=== PATIENT | female | born 1950 | race Caucasian/White ===

== ENCOUNTER → 2017-01-13 | Outpatient (CLI) | payer MEDICARE ==
--- NOTE | 2017-01-13 11:04 | WWHP ---
[facility] - HISTORY AND PHYSICAL DATE OF SERVICE: 01/13/2017 CHIEF COMPLAINT: The patient is here for her routine gynecologic exam and mammogram. HPI: This is a 66-year-old G3, P3 with an LMP of approximately 2005. She is here to establish with this office and is without gynecologic complaints. She denies any postmenopausal bleeding. The patient states it has been about 5 years since her last pelvic exam. PAST MEDICAL HISTORY: Chronic hypertension, type 2 diabetes, and depression. She denies any suicidal thoughts and is not on any medication for this. She also has hip problems. MEDICATIONS: 1. Aspirin 81 mg daily. 2. Enalapril 10 mg daily. 3. Hydrochlorothiazide 12.5 mg daily. 4. Xanax 0.5 mg p.r.n. 5. She was prescribed medication for her diabetes, but has not been taking it. ALLERGIES: PENICILLIN, which caused hives and CODEINE and HYDROCODONE caused pruritus. PAST SURGICAL HISTORY: Tubal ligation in the past, colonoscopy 2012. PAST OB HISTORY: Three vaginal deliveries. PAST PHYSICALLY IMPAIRED TEACHER HISTORY: She was treated for a sexually transmitted infection in 1968 but does not know exactly what it was. She has no other history of STDs. She has no history of HSV. SOCIAL HISTORY: She quit smoking in 2013 and denies alcohol use. She admits to using marijuana and denies any other drug use. She is a and is not seeing anybody at this time and is not sexually active. FAMILY HISTORY: Sister has type 1 diabetes. Father had lung cancer. REVIEW OF SYSTEMS: Weight has been stable. She denies respiratory, cardiac or GI problems. She denies maltreatment. She states she did fall in the shower once, but had no major injuries. : She denies any significant problems with urinary leakage. PHYSICAL EXAM: Blood pressure 158/66, height 5 feet 5 inches, weight 167 pounds, temperature 96.1, pulse 77. This is a well-developed, well-nourished, white female, who is alert and oriented x3, in no acute distress. HEENT is within normal limits. NECK: Supple without mass or thyromegaly. CHEST AND LUNGS: Clear to auscultation. HEART: Regular rate and rhythm. Breasts are without mass or discharge. Axillary exam is negative for adenopathy. Back negative for CVA tenderness. ABDOMEN: Soft, nontender, without palpable masses. PELVIC EXAM: External genitalia reveals qawo-ap-nfegwnjy atrophy without lesions. Cervix and vagina reveal mild atrophy without lesions. There is no significant prolapse. The uterus is mid position, nongravid size and nontender. There are no palpable adnexal masses or tenderness. Rectovaginal exam is negative for mass or tenderness and is negative for occult blood. EXTREMITIES: Nontender. IMPRESSION: A 66-year-old menopausal female with normal gynecologic exam. PLAN: 1. Pap smear was performed. 2. Self breast examination was discussed. 3. Mammogram will be done today. 4. Bone density testing will be done today and this will be her first. Osteoporosis prevention was also discussed. 5. We have discussed her elevated blood pressure today. I have recommend that she check her blood pressure herself on a regular basis and follow up with Dr. Goodson for blood pressure elevation. 6. I have recommended that she consider flu shots and she states she never gets them because of concerns with the flu shot. 7. I have recommended that she talk to Dr. Goodson regarding her diabetes treatment since she has not been taking her medication as prescribed. 8. She will return in 1 year. MMODL / IJN: [id number] /
--- NOTE | 2017-01-13 11:07 | BD ---
EXAMINATION TYPE: MG DEXA axial skeleton. DATE OF EXAM: 01/13/2017 COMPARISON: NONE CLINICAL HISTORY: post menopausal Height: 5'4 06/07 Weight: 165 FRAX RISK QUESTIONS: Alcohol (3 or more units per day): no Family History (Parent hip fracture): no Glucocorticoids (More than 3mos): no (Ex: prednisone, prednisolone, methylprednisolone, dexamethasone, and hydrocortisone). History of Fracture in Adulthood: no Secondary Osteoporosis: 1. Type 1 Diabetes: yes 2. Hyperthyroidism: no 3. Menopause before 45: no 4. Malnutrition: no 5. Chronic liver disease: no Rheumatoid Arthritis: no Current Tobacco Use: no RISK FACTORS HISTORY OF: Active: Diet low in dairy products/other sources of calcium: Postmenopausal woman: MEDICATIONS: Additional Medications: high blood pressure , Additional History: left hip replacement end february EXAM MEASUREMENTS: Bone mineral densitometry was performed using the Verold System. Bone mineral density as measured about the Lumbar spine is: ----- L1-L4(G/cm2): 1.436 T Score Values are as follows: ----- L2: 1.1 ----- L3:2.5 ----- L4: 3.4 ----- L1-L4: 2.1 Bone mineral density about the R hip (g/cm2): 0.826 Bone mineral density about the L hip (g/cm2): 0.953 T Score values are as follows: -----R Neck: -1.0 -----L Neck: -0.6 -----R Total: -0.2 -----L Total: -0.1 IMPRESSION: Normal (Values between +1 and -1 indicate normal bone mass). Consider repeating this study in 5 year s or sooner if there is some new clinical indication. NOTE: T-SCORE=SD OF THE YOUNG ADULT MEAN.
--- NOTE | 2017-01-13 11:41 | MM ---
Reason for exam: screening (asymptomatic). Last mammogram was performed 1 year and 3 months ago. History: Patient is postmenopausal and had first child at age 31. Physical Findings: A clinical breast exam by your physician is recommended on an annual basis and results should be correlated with mammographic findings. MG Screening Mammo w CAD Bilateral CC and MLO view(s) were taken. Prior study comparison: October 22, 2015, bilateral MG screening mammo w CAD. September 26, 2013, bilateral MG screening mammo w CAD. There are scattered fibroglandular densities. Finding: There are typically benign round calcifications in the left breast. There is no discrete abnormality. ASSESSMENT: Benign, BI-RAD 2 RECOMMENDATION: Routine screening mammogram of both breasts in 1 year.
== END ==
LOC: WWCWWP 09:09
PROVIDERS: ATTEND Obstetrics & Gynecology
DX: Z12.31 Encounter for screening mammogram for malignant neoplasm of breast (principal); Z78.0 Asymptomatic menopausal state
CPT/HCPCS: 77080; G0202

== ENCOUNTER → 2017-09-01 | Outpatient (CLI) | payer MEDICARE ==
--- NOTE | 2017-09-01 14:20 | XR ---
EXAMINATION TYPE: XR chest 2V DATE OF EXAM: 09/01/2017 COMPARISON: NONE HISTORY: Preop hip surgery TECHNIQUE: Frontal and lateral views of the chest are obtained. FINDINGS: There is no focal air space opacity, pleural effusion, or pneumothorax seen. The cardiac silhouette size is within normal limits. The osseous structures are intact. Degenerative disc forbes es in the visualized spine. IMPRESSION: No acute cardiopulmonary process.
== END | disposition home or self-care (01) ==
LOC: LABPAT 11:29
PROVIDERS: ATTEND Orthopaedic Surgery
DX: Z01.818 Encounter for other preprocedural examination (principal); Z01.812 Encounter for preprocedural laboratory examination; M16.12 Unilateral primary osteoarthritis, left hip
CPT/HCPCS: 71046; 87070

== ENCOUNTER → 2017-09-04 | Outpatient (CLI) | payer MEDICARE ==
[2017-09-04 11:21] LABS: Basophils # (A) 0.1 k/uL (0-0.2); Basophils % (A) 1 %; Eosinophils # (A) 0.3 k/uL (0-0.7); Eosinophils % (A) 3 %; HCT 44.4 % (34.0-46.0); HGB 15.3 gm/dL (11.4-16.0); Lymphocytes # (A) 3.1 k/uL (1.0-4.8); Lymphocytes % (A) 34 %; MCH 31.1 pg (25.0-35.0); MCHC 34.4 g/dL (31.0-37.0); MCV 90.5 fL (80.0-100.0); Mean Platelet Volume 7.5; Monocytes # (A) 0.7 k/uL (0-1.0); Monocytes % (A) 7 %; Neutrophils # (A) 4.7 k/uL (1.3-7.7); Neutrophils % (A) 52 %; Platelet Count 336 k/uL (150-450); RDW 12.8 % (11.5-15.5)
[2017-09-04 11:40] LABS: Partial Thromboplastin Time 24.6 sec (22.0-30.0); Prothrombin Time 9.6 sec (9.0-12.0)
[2017-09-04 11:52] LABS: Potassium 4.3 mmol/L (3.5-5.1)
== END | disposition home or self-care (01) ==
LOC: LABPAT 10:55
PROVIDERS: ATTEND Orthopaedic Surgery
DX: Z01.812 Encounter for preprocedural laboratory examination (principal); M16.12 Unilateral primary osteoarthritis, left hip; Z79.01 Long term (current) use of anticoagulants
CPT/HCPCS: 36415; 80051; 85025; 85610; 85730

== ENCOUNTER 2017-09-08 06:29 | Inpatient (IN) | payer MEDICARE ==
[2017-08-26 12:15] VITALS: BMI 28.3
--- NOTE | 2017-09-07 08:38 | P.HPOR ---
History of Present Illness H&P Date: 09/07/17 Chief Complaint: left hip pain The patient is a 67 year old retired female who presents with progressive left hip pain secondary to osteoarthrosis despite conservative measures. She notes stiffness and pain with weightbearing activities. She does use a cane. Review of Systems All systems: negative (left hip pain) Past Medical History Past Medical History: Hypertension, Osteoarthritis (OA) Additional Past Medical History / Comment(s): "borderline diabetes" History of Any Multi-Drug Resistant Organisms: None Reported Past Surgical History: Tubal Ligation Past Anesthesia/Blood Transfusion Reactions: Motion Sickness Smoking Status: Former smoker - Past Family History Father Family Medical History: Cancer Additional Family Medical History / Comment(s): lung cancer Medications and Allergies Home Medications Medication Instructions Recorded Confirmed Type ALPRAZolam [Xanax] 0.5 mg PO DAILY PRN 08/26/17 08/26/17 History Acetaminophen Tab [Tylenol Tab] 1,000 mg PO BID 08/26/17 08/26/17 History Aspirin EC [Ecotrin Low Dose] 81 mg PO DAILY 08/26/17 08/26/17 History Enalapril [Vasotec] 10 mg PO DAILY 08/26/17 08/26/17 History Hydrochlorothiazide 12.5 mg PO DAILY 08/26/17 08/26/17 History Allergies Allergy/AdvReac Type Severity Reaction Status Date / Time aspirin Allergy higher Verified 08/26/17 12:02 doses caused bleeding issue in past Penicillins Allergy Rash/Hives Verified 08/26/17 12:02 Physical Examination - Hip left Gait: antalgic Tenderness with palpation: anterior Pain with motion: internal rotation and hip flexion ROM: extension: 0 degrees ROM: flexion: 80 degrees ROM: internal rotation: 0 degrees ROM: external rotation: 40 degrees Strength: extension: 5/5 Strength: flexion: 5/5 Strength: abduction: 5/5 Tests: impingement tests: positive Results - Diagnostic results Hip x-ray: image reviewed (severe left hip osteoarthrosis) Assessment and Plan Assessment: Severe left hip osteoarthrosis Plan: A thorough discussion regarding the patient's condition and treatment options was had. She is quite symptomatic and opts to proceed with left total hip arthroplasty. We will institute DVT prophylaxis postoperatively. Time with Patient: Less than 30
[~2017-09-08 06:29] MED LIST: ACETAMINOPHEN TAB 500 MG TAB PO ONE; HYDROmorphone 0.5 MG/0.5 ML SYRINGE IVP PRN; MELOXICAM 7.5 MG TAB PO ONE; MORPHINE SULFATE 4 MG/ML SYRINGE IV PRN; ONDANSETRON 4 MG/2 ML VIAL IVP PRN; TRANEXAMIC ACID 1,000 MG in SODIUM CHLORIDE 0.9% 50 ML IVPB ONE; ceFAZolin IN SWFI 2 GM/20 ML SYRINGE IVP ONE
[2017-09-08] MEDS ORDERED: LIDOCAINE 1% 20 ML VIAL (10MG/ML) FOR IV START INTRADERMA ONE (07:14)
[2017-09-08] MEDS: LACTATED RINGERS 1,000 ML IV SCH ×2 (07:14→17:24)
[2017-09-08] MEDS ORDERED: ONDANSETRON 4 MG/2 ML VIAL ONE (07:16)
[2017-09-08 07:34] LABS: Glucose,Whole Blood 160 mg/dL (75-99)
[2017-09-08] MEDS ORDERED: PHENYLEPHRINE-0.9% NACL SYG 1 MG/10 ML SYRINGE ONE (08:00)
[2017-09-08] MEDS ORDERED: MIDAZOLAM 2 MG/2 ML VIAL ONE (08:00)
[2017-09-08] MEDS ORDERED: diphenhydrAMINE 50 MG/ML 1 ML VIAL ONE (08:00)
[2017-09-08] MEDS ORDERED: HEPARIN SODIUM,PORCINE 10,000 UNIT/ML 1 ML VIAL ONE (08:00)
[2017-09-08] MEDS ORDERED: LACTATED RINGERS 1,000 ML BAG IV ONE (08:00)
[2017-09-08] MEDS ORDERED: TRANEXAMIC ACID 1,000 MG/10 ML VIAL ONE (08:00)
[2017-09-08] MEDS ORDERED: SODIUM CHLORIDE 0.9% 100 ML BAG ONE (08:00)
[2017-09-08] MEDS ORDERED: ePHEDrine SULFATE/0.9% NACL/PF 50 MG/5 ML SYRINGE IV ONE (08:00)
[2017-09-08] MEDS ORDERED: LIDOCAINE 1% INJ 10MG/ML (20 ML MDV) ONE (08:00)
[2017-09-08] MEDS ORDERED: PROPOFOL 10 MG/ML 20 ML VIAL IV ONE (08:00)
[2017-09-08] MEDS ORDERED: CLINDAMYCIN 1,800 MG in SODIUM CHLORIDE 0.9% IRRIGATIO 3,000 ML IRRIGATION ONE (08:43)
[2017-09-08] MEDS ORDERED: LACTATED RINGERS 1,000 ML IV ONE (09:38)
[2017-09-08] MEDS ORDERED: HYDROcodone/APAP 5-325MG 1 EACH TAB PO PRN ×2 (10:04)
[2017-09-08] MEDS ORDERED: MORPHINE SULFATE 2 MG/ML SYRINGE IV PRN (10:04)
[2017-09-08] MEDS ORDERED: NALOXONE 0.4 MG/ML 1 ML VIAL IV PRN (10:04)
[2017-09-08] MEDS ORDERED: MAGNESIUM HYDROXIDE 2,400 MG/10 ML CUP PO PRN (10:04)
[2017-09-08] MEDS ORDERED: MORPHINE SULFATE 2 MG/ML SYRINGE IVP PRN ×2 (10:04)
--- NOTE | 2017-09-08 10:10 | XR ---
EXAMINATION TYPE: XR Hip Limited LT DATE OF EXAM: 09/08/2017 COMPARISON: NONE HISTORY: Postop left hip TECHNIQUE: One view submitted. FINDINGS: There is a prosthetic hip in near anatomic alignment. There is soft tissue edema and emphysema. IMPRESSION: 1. Postoperative change. Appears in near-anatomic alignment.
--- NOTE | 2017-09-08 10:10 | FL ---
EXAMINATION TYPE: FL guidance operating room DATE OF EXAM: 09/08/2017 HISTORY: Flouroscopy time 25 seconds of fluoroscopy provided. IMPRESSION: 1. Fluoroscopy time.
[2017-09-08 10:39] LABS: Glucose,Whole Blood 118 mg/dL (75-99)
--- NOTE | 2017-09-08 10:39 | P.OP ---
Date of Procedure: 09/08/17 Preoperative Diagnosis: Left hip severe osteoarthrosis Postoperative Diagnosis: Same Procedure(s) Performed: Left total hip paymqcunlarr-ykpde-xaa-anterior approach Implants: Depuy Corail size 11 standard collared press-fit femoral stem, 32 mm +1 ceramic femoral head, 52 mm [place] acetabular shell with neutral polyethylene liner. Anesthesia: spinal Surgeon: Magan Newman Shellfish Farming Supervisor #1: Wally Thomson Estimated Blood Loss (ml): 150 Pathology: other (Femoral head) Condition: stable Disposition: PACU Indications for Procedure: The patient's a 67-year-old female who presents with progressive left hip pain secondary to osteoarthrosis despite conservative measures. A discussion of the risks and benefits of operative intervention versus continued conservative measures was made with the patient. She opted to proceed with surgery. Operative risks to include infection, neurovascular injury, development of blood clots, possible fracture, possible leg length discrepancy, possible instability and need for subsequent procedures was discussed. Informed consent was obtained. Operative Findings: As below Description of Procedure: The patient was brought to the operating room, and after induction of spinal anesthesia was positioned supine on the Megan table. The left lower extremity was prepped and draped in normal fashion. Preoperative templating was previously performed to estimate component positioning and sizes. Fluoroscopy was used to check that the pelvis was level. A longitudinal incision extending approximately 12 cm was then made 3 finger breaths posterior and distal to the ASIS. The skin was incised sharply. The subcutaneous tissues were divided sharply. Electrocautery was used for hemostasis. The fascia was split anterior to the perforators. The interval between the sartorius and tensor fascia santos was then bluntly developed. The posterior fascia was opened. Lateral circumflex vessels were identified and cauterized prior to sectioning. A retractor was placed along the superior femoral neck. The rectus was elevated off the anterior capsule. The retractors placed along the anterior acetabular rim. A wide capsulotomy was performed. The femoral neck cut was then made at a 45 angle to the shaft or proximal 1/2 cm above the level of the lesser trochanter. The head was then extracted. Attention was then paid towards preparing the acetabulum. Anterior and posterior retractors were placed. The remaining capsular labral tissue was sharply removed clearly defining the acetabular margins. I began reaming with a 45 mm reamer taking care to initially medialize, then reaming at 45 of abduction and 20 of anteversion. Sequential reaming is performed up to 51 mm. This is done to a bleeding bony surface. A trial 52 mm acetabular shell was inserted in the same orientation and this was verified with fluoroscopy. There was good rim fit and stability. The final 52 mm acetabular shell was inserted at again at 45 of abduction and 20 of anteversion. Again there was good rim fit and stability. I did place a 25 mm x 6.5 mm cancellus screw with good purchase. A neutral polyethylene liner was then gently impacted. Care was taken to avoid any soft tissue interposition. Pulsatile lavage was then utilized. Attention was then paid towards preparing the proximal femur. The leg was externally rotated 130 then extended and adducted. A canal finder was used to find the femoral canal. A box chisel was used to open the metaphyseal region. Sequential broaching was performed up to a size 11 broach. This was placed and allowed to the posterior cortex. A calcar mill was used to fashion a medial calcar. A standard neck along with a 32 mm +1 trial head was placed. The hip was gently relocated. Fluoroscopy showed adequate rastafarian of leg length and overall positioning. This was verified with overlay technique. The hip was gently dislocated. The trial components were then removed. The size 11 collared standard femoral stem was inserted again parallel to the posterior cortex. This was fully seated. There is good rotational stability. A 32 mm +1 ceramic femoral head was gently impacted. Hip was gently reduced. Again I felt there was adequate rastafarian of soft tissue tension and overall leg length. This was verified with fluoroscopy. The hip was externally rotated 60 and then extended 50. It was felt to be stable. Pulsatile lavage was again utilized. The fascia was closed with running 0 Vicryl suture. Minimal drainage was noted this point therefore a deep drain was not placed. The subcutaneous tissues were reapproximated with interrupted 2-0 Vicryl sutures. The skin was reapproximated with 3-0 subcuticular strata fix suture. Skin tape and adhesive was applied. A sterile dressing was applied. The patient was then awoken from sedation and transferred to recovery room in good condition. Blood loss was estimated at 150 mL. 2 doses of IV TXA was given. No complications were incurred. Sponge and needle counts were correct at the end of the case.
--- NOTE | 2017-09-08 10:51 | XR ---
EXAMINATION TYPE: XR Hip Limited LT DATE OF EXAM: 09/08/2017 COMPARISON: NONE HISTORY: Postop TECHNIQUE: One view submitted. FINDINGS: There is a prosthetic hip in near anatomic alignment. There is soft tissue edema and emphysema. IMPRESSION: 1. Postoperative change. Appears in near-anatomic alignment.
[2017-09-08] MEDS: traMADol 50 MG TAB PO SCH ×2 (13:12→18:06)
[2017-09-08] MEDS: ACETAMINOPHEN TAB 325 MG TAB PO PRN ×2 (15:20→21:26)
[2017-09-08] MEDS: ceFAZolin IN SWFI 2 GM/20 ML SYRINGE IVP SCH (15:56)
[2017-09-08] MEDS: SENNOSIDES-DOCUSATE SODIUM 1 EACH TAB PO SCH (20:47)
[2017-09-09] MEDS: traMADol 50 MG TAB PO SCH ×5 (00:11→22:14)
[2017-09-09] MEDS: ceFAZolin IN SWFI 2 GM/20 ML SYRINGE IVP SCH (00:12)
[2017-09-09] MEDS: ALPRAZolam 0.5 MG TAB PO PRN ×2 (00:35→19:37)
[2017-09-09 07:41] LABS: Basophils % (A) 0 %; Eosinophils # (A) 0.1 k/uL (0-0.7); Eosinophils % (A) 1 %; HCT 36.1 % (34.0-46.0); HGB 12.7 gm/dL (11.4-16.0); Lymphocytes # (A) 1.8 k/uL (1.0-4.8); Lymphocytes % (A) 19 %; MCH 30.9 pg (25.0-35.0); MCHC 35.1 g/dL (31.0-37.0); MCV 88.2 fL (80.0-100.0); Mean Platelet Volume 6.9; Monocytes # (A) 1.1 k/uL (0-1.0); Monocytes % (A) 12 %; Neutrophils # (A) 6.4 k/uL (1.3-7.7); Neutrophils % (A) 67 %; Platelet Count 260 k/uL (150-450); RDW 12.6 % (11.5-15.5); WBC 9.6 k/uL (3.8-10.6)
[2017-09-09] MEDS: LISINOPRIL 20 MG TAB PO SCH (09:05)
[2017-09-09] MEDS: RIVAROXABAN 10 MG TAB PO SCH (09:05)
[2017-09-09] MEDS: HYDROCHLOROTHIAZIDE 12.5 MG CAP PO SCH (09:05)
[2017-09-09] MEDS: ACETAMINOPHEN TAB 325 MG TAB PO PRN ×3 (09:05→19:37)
[2017-09-09] MEDS: LACTATED RINGERS 1,000 ML IV SCH (11:17)
--- NOTE | 2017-09-09 19:07 | CONS ---
CONSULTATION SUBJECTIVE: This is a 67-year-old white female for medical management consultation. Status post orthopedic surgery. No chest pain, no shortness of breath, no syncope. She had left hip surgery. She is only taken Tylenol for pain at this time. She is on enalapril for hypertension at home and hydrochlorothiazide. REVIEW OF SYSTEMS: Fourteen point review of systems negative except for mentioned in HPI. PHYSICAL EXAMINATION: Cardiovascular S1, S2. LUNGS: Transmitted upper sounds. HEMATOLOGY negative Homans. PSYCH fair mood and affect. NEUROLOGIC: Alert and orient x3. ASSESSMENT: 1. Status post left hip replacement. 2. Hypertension. 3. Anxiety. 4. Osteoarthritis. Patient is stable from medical standpoint. Resume home medicines. Possible discharge home next 24 to 48 hours. MMODL / IJN: [id number] /
[2017-09-09] MEDS: amLODIPine 5 MG TAB PO SCH (19:43)
[2017-09-09] MEDS: SENNOSIDES-DOCUSATE SODIUM 1 EACH TAB PO SCH (19:55)
[2017-09-10 07:41] VITALS: BP 153/70; PULSE 92; RESP 14; TEMP 97.9
[2017-09-10] MEDS: LACTATED RINGERS 1,000 ML IV SCH (08:44)
[2017-09-10] MEDS: RIVAROXABAN 10 MG TAB PO SCH (08:44)
[2017-09-10] MEDS: LISINOPRIL 20 MG TAB PO SCH (08:45)
[2017-09-10] MEDS: HYDROCHLOROTHIAZIDE 12.5 MG CAP PO SCH (08:45)
[2017-09-10] MEDS: amLODIPine 5 MG TAB PO SCH (08:45)
[2017-09-10] MEDS: traMADol 50 MG TAB PO SCH (09:44)
--- NOTE | 2017-09-10 10:55 | P.PN ---
Subjective Progress Note Date: 09/10/17 Principal diagnosis: Status post left total hip arthroplasty Patient is seen today resting in her hospital bed, she appears comfortable. Her pain is well-controlled. She denies any chest pain or shortness of breath. Objective - Vital Signs Vital signs: Vital Signs Temp 97.9 F 09/10/17 07:15 Pulse 92 09/10/17 07:15 Resp 14 09/10/17 07:15 BP 153/70 09/10/17 07:15 Pulse Ox 98 09/10/17 07:15 Intake & Output 09/09/17 09/10/17 09/10/17 18:59 06:59 18:59 Intake Total 1000 120 Output Total 1300 Balance -1300 1000 120 Intake: Oral 1000 120 Output: Urine 1300 Other: # Voids 1 1 - Exam Left lower extremity: Incision is clean, dry, and intact. The prineo tape is in good condition. There is minimal soft tissue swelling and ecchymosis surrounding the medial and lateral aspects of the incision. Calf is soft, no tenderness with palpation. Plantar flexion, dorsiflexion, EHL, FHL are intact. Sensory exam to light touch throughout the extremity is intact, dorsal pedis pulses 2+. - Labs CBC & Chem 7: 09/09/17 06:35 Assessment and Plan Plan: Assessment: 1. Postop day #2 status post left total hip arthroplasty Plan: Pain control, she will utilize Tylenol at home GI and DVT prophylaxis, Xarelto 10 mg daily for 20 days Wound care instructions were discussed Home nursing and therapy after discharge Medical recommendations Discharge planning: Patient will be discharged home today Time with Patient: Less than 30
--- NOTE | 2017-09-10 10:56 | P.DS ---
Providers Date of admission: 09/08/17 06:29 Expected date of discharge: 09/10/17 Attending physician: Magan Newman Consults: 09/08/17 10:08 Consult Physician Routine Consulting Provider: Juan J Landa Consult Reason/Comments: Medical Management Do you want consulting provider notified?: Yes 09/08/17 10:49 Consult Physician Routine Consulting Provider: Lavelle Singleton Consult Reason/Comments: medical management Do you want consulting provider notified?: Yes Primary care physician: Juan J Landa Hospital Course: Date of admission: 09/08/2017 Date of discharge: 09/10/2017 Admission diagnosis: Status post direct anterior left total hip arthroplasty Discharge diagnosis: Same Attending physician: Dr. Newman Surgical procedures: Direct anterior left total hip arthroplasty Brief history: Patient is a 67-year-old female with a history of progressive primary left hip osteoarthritis. At this point patient has failed conservative treatment measures and has opted to proceed with a elective direct anterior left total hip arthroplasty. Hospital course: Details of patient's surgery can be found in operative report. Patient tolerated the procedure well and was subsequently transported to orthopedic floor. Patient's orthopeidc and medical care was provided daily. Patient had daily laboratory tests performed for evaluation of overall blood counts. Patient had daily physical therapy to include strengthening range of motion as well as education with walker ambulation. Patient was treated with Xarelto for their postoperative DVT prophylaxis during their inpatient stay. Patient was noted to have a relatively uneventful postoperative course. Patient reported satisfactory pain control with oral pain medications by postoperative day 0. Patient showed satisfactory progress with physical therapy. Patient moved steadily through the program and had no difficulty meeting the goals by postoperative day 2. Given patient's otherwise satisfactory course and having met physical therapy goals, plan is to discharge patient home on postoperative day 2. Discharge condition/disposition: Patient will be discharged home in stable condition. Discharge medications: Instructions are given on resumption of patient's normal daily medications per primary care recommendation, in addition patient will be prescribed Xarelto 10 mg. Discharge instructions: 1. Wound care and infection precautions, keep incision dry and covered while showering, no lotions, creams, moisturizers. No soaking, tubs, pools, hottubs. Do not scrub over the incision. 2. Weight-bear as tolerated with walker / cane until follow-up. 3. Ice and elevate when necessary. Do not exceed 20 minutes per hour with ice pack. 4. Utilize compression sleeve until seen at first follow up appointment. 5. Visiting nursing care. 6. Home physical therapy. 7. Pain meds and anticoagulants per prescription. 8. Pain medication has potential to cause constipation. Increase oral fluid and fiber intake. Contact primary care provider if you have not had a bowel movement within 48 hours after discharge 9. No anti-inflammatory medication until discussed at first post operative visit, this including Motrin, Aleve, Mobic, Diclofenac. 10. Follow up in office at 2 weeks postop with Hesham Thomson PA-C 11. Follow up with your primary care doctor 7-10 days after discharge. 12. Contact [facility] with any questions, . Procedures: Direct anterior left total hip arthroplasty Patient Condition at Discharge: Good Plan - Discharge Summary Discharge Rx Participant: Yes New Discharge Prescriptions: New Rivaroxaban [Xarelto] 10 mg PO DAILY #28 tab No Action Aspirin EC [Ecotrin Low Dose] 81 mg PO DAILY Hydrochlorothiazide 12.5 mg PO DAILY Enalapril [Vasotec] 10 mg PO DAILY ALPRAZolam [Xanax] 0.5 mg PO DAILY PRN PRN Reason: Anxiety Acetaminophen Tab [Tylenol Tab] 1,000 mg PO BID Discharge Medication List ALPRAZolam [Xanax] 0.5 mg PO DAILY PRN 08/26/17 [History] Acetaminophen Tab [Tylenol Tab] 1,000 mg PO BID 08/26/17 [History] Aspirin EC [Ecotrin Low Dose] 81 mg PO DAILY 08/26/17 [History] Enalapril [Vasotec] 10 mg PO DAILY 08/26/17 [History] Hydrochlorothiazide 12.5 mg PO DAILY 08/26/17 [History] Rivaroxaban [Xarelto] 10 mg PO DAILY #28 tab 09/08/17 [Rx] Follow up Appointment(s)/Referral(s): Reese Goodson MD [STAFF PHYSICIAN] - 09/15/17 10:15 am Wally Thomson PAC [PHYSICIAN AUTOMOTIVE WORKER] - 09/23/17 2:30 pm [facility] Visiting Nurse, [NON-STAFF] - Activity/Diet/Wound Care/Special Instructions: Orthopedic Discharge Instructions: 1. Wound care and infection precautions, keep incision dry and covered while showering, no lotions, creams, moisturizers. No soaking, pools, hot tubs. Do not scrub over incision. 2. Weight-bear as tolerated with walker / cane until follow-up. 3. Ice and elevate when necessary. Do not exceed 20 minutes per hour with ice pack. 4. Utilize compression sleeve until seen at first follow up appointment. 5. Visiting nursing care. 6. Home physical therapy. 7. Pain meds and anticoagulants per prescription. 8. Pain medication has potential to cause constipation. Increase oral fluid and fiber intake. Contact primary care provider if you have not had a bowel movement within 48 hours after discharge. 9. No anti-inflammatory medication until discussed at first post operative visit, this including Motrin, Aleve, Mobic, Diclofenac. 10. Follow up in office at 2 weeks postop with Hesham Thomson PA-C 11. Follow up with your primary care doctor 7-10 days after discharge. 12. Contact [facility] with any questions, . Discharge Disposition: HOME WITH HOME HEALTH SERVICES
== END 2017-09-10 13:24 | disposition home health service (06) | DRG 470 ==
LOC: 2ORMAIN 06:29 → 3SUR 10:41
PROVIDERS: ADMIT Orthopaedic Surgery; ATTEND Orthopaedic Surgery
PROC: 0SRB04A Replacement of Left Hip Joint with Ceramic on Polyethylene Synthetic Substitute, Uncemented, Open Approach (ICD-10-PCS; principal; 2017-09-08 08:00)
DX: M16.12 Unilateral primary osteoarthritis, left hip (principal); F41.9 Anxiety disorder, unspecified; I10 Essential (primary) hypertension; E78.5 Hyperlipidemia, unspecified; R73.03 Prediabetes; Z98.51 Tubal ligation status; Z79.82 Long term (current) use of aspirin; Z79.899 Other long term (current) drug therapy; Z88.6 Allergy status to analgesic agent; Z87.891 Personal history of nicotine dependence; Z80.1 Family history of malignant neoplasm of trachea, bronchus and lung; Z88.0 Allergy status to penicillin; Z88.5 Allergy status to narcotic agent
CPT/HCPCS: 73501; 85025; 86850; 86891; 86900; 86901; 88300

== ENCOUNTER → 2018-02-02 | Outpatient (CLI) | payer MEDICARE ==
[2018-02-02 11:13] VITALS: BP 142/67; PULSE 94; TEMP 96.6; BMI 28.9
--- NOTE | 2018-02-02 12:03 | P.HPOB ---
History of Present Illness H&P Date: 02/02/18 Chief Complaint: The patient is here for her routine gynecologic exam and mammogram. This is a 67-year-old G3 PIII with an LMP of 2004. The patient is here for her annual exam and denies any postmenopausal bleeding. She has noticed some urinary urgency and urinary frequency and has recently noticed occasional leakage with coughing or if she does not go to the bathroom fast enough. She is otherwise without complaints. Review of Systems She is getting about 7 pounds over the last year. She denies respiratory, cardiac and G.I. problems. She denies maltreatment or problems with falling. : she has noticed recent urinary leakage as in the HPI. She has had recent urinary frequency and urgency. 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 She has no other history of STDs. History of Any Multi-Drug Resistant Organisms: None Reported Past Surgical History: Joint Replacement (Left Hip replacement surgery), Tubal Ligation Additional Past Surgical History / Comment(s): Colonoscopy 2012. Past Anesthesia/Blood Transfusion Reactions: Motion Sickness Past Psychological History: Anxiety, Depression Smoking Status: Former smoker (Quick 2013) Past Alcohol Use History: None Reported Additional Past Alcohol Use History / Comment(s): smoked 14 years 1 ppd quit 2013 Past Drug Use History: Marijuana Additional Drug Use History / Comment(s): medical marijuana card 4gms/day Additional History: She is a and is not seeing anybody at this time and is not sexually active. She does not work outside the home. - Past Family History Father Family Medical History: Cancer (Lung cancer) Sister(s) Family Medical History: Diabetes Mellitus Medications and Allergies Home Medications Medication Instructions Recorded Confirmed Type ALPRAZolam [Xanax] 0.5 mg PO DAILY PRN 08/26/17 02/02/18 History Acetaminophen Tab [Tylenol Tab] 1,000 mg PO BID 08/26/17 02/02/18 History Aspirin EC [Ecotrin Low Dose] 81 mg PO DAILY 08/26/17 02/02/18 History Enalapril [Vasotec] 10 mg PO DAILY 05/23/18 10/30/18 History Hydrochlorothiazide 12.5 mg PO DAILY 08/26/17 02/02/18 History Allergies Allergy/AdvReac Type Severity Reaction Status Date / Time aspirin Allergy higher Verified 02/02/18 11:08 doses caused bleeding issue in past Penicillins Allergy Rash/Hives Verified 02/02/18 11:08 Exam Vital Signs Temp Pulse BP 02/02/18 11:08 96.6 F L 94 142/67 Intake and Output 02/01/18 02/02/18 02/02/18 22:59 06:59 14:59 Other: Weight 78.925 kg Height 5'5", weight 174 pounds, BMI 29.0. This is a well-developed well-nourished white female who is alert and oriented times 3 in no acute distress. HEENT: Within normal limits. NECK: Supple without mass or thyromegaly. CHEST AND LUNGS: Clear to auscultation. HEART: Regular rate and rhythm. BREASTS: Are without mass or discharge. AXILLARY EXAM: Negative for adenopathy. BACK: Negative for CVA tenderness. ABDOMEN: Soft, nontender, without palpable masses. PELVIC EXAM: Normal external genitalia with mild atrophy. Cervix appears normal. Vagina reveals a grade 2 cystocele and grade 1 to 2 rectocele. No urinary leakage is demonstrated with cough or Valsalva. There are no vaginal lesions. There is no unusual discharge. The uterus is midposition, nongravid size and nontender. There are no palpable adnexal masses or tenderness. RECTAL EXAM: rectovaginal exam is negative for mass or tenderness and is negative for occult blood. Rectal exam confirms a small rectocele. EXTREMITIES: Nontender. IMPRESSION: 1. 67-year-old menopausal female with grade 2 cystocele and grade 1 to 2 rectocele. 2. Recent urinary symptoms including urinary urgency, frequency and occasional stress incontinence or urge incontinence. This may be related to her cystocele. Differential diagnosis will also include urinary tract infection. PLAN: 1. Pap smear was deferred since she had a normal one last year. 2. Self breast awareness was discussed with the patient. 3. Mammogram will be done today. 4. I catch midstream urinalysis and urine culture will be obtained today. 5. I have recommended that she check her blood pressure on her own on a regular basis and follow-up with Dr. Mullally for blood pressure elevations. 6. I have recommended a flu shot. She is declining this. 7. She will return in one year.
--- NOTE | 2018-02-03 14:58 | P.PN ---
Progress Note - Text Progress Note Date: 02/03/18 OUTPATIENT FOLLOW-UP NOTE TEST(S)/RESULTS: urinalysis from 02/02/2018 shows moderate leukocyte esterase. METHOD OF NOTIFICATION: a message was left on the patient's voice saying her lab test is consistent with the urinary tract infection. PATIENT COMMENTS: DIAGNOSIS: cystitis/UTI DISCUSSION: PLAN: a prescription for Macrobid 100 mg 1 PO Q 12 hours times 7 days with sent to [place] reported here on pharmacy, no refills. Await urine culture which is pending.
--- NOTE | 2018-02-04 11:25 | MM ---
Reason for exam: screening (asymptomatic). Last mammogram was performed 1 year and 1 month ago. History: Patient is postmenopausal and had first child at age 31. MG 3D Screening Mammo W/Cad Bilateral CC and MLO view(s) were taken. Prior study comparison: January 13, 2017, bilateral MG screening mammo w CAD. October 22, 2015, bilateral MG screening mammo w CAD. No significant changes when compared with prior studies. ASSESSMENT: Benign, BI-RAD 2 RECOMMENDATION: Routine screening mammogram of both breasts in 1 year.
== END | disposition home or self-care (01) ==
LOC: WWCWWP 10:26
PROVIDERS: ATTEND Obstetrics & Gynecology
DX: Z12.31 Encounter for screening mammogram for malignant neoplasm of breast (principal)
CPT/HCPCS: 77063; 77067

== ENCOUNTER → 2020-07-12 | Outpatient (CLI) | payer MEDICARE ==
--- NOTE | 2020-07-16 09:53 | MM ---
Reason for exam: screening (asymptomatic). Last mammogram was performed 2 years and 5 months ago. History: Patient is postmenopausal and had first child at age 31. Physical Findings: A clinical breast exam by your physician is recommended on an annual basis and results should be correlated with mammographic findings. MG 3D Screening Mammo W/Cad Bilateral CC and MLO view(s) were taken. Prior study comparison: February 02, 2018, bilateral MG 3d screening mammo w/cad. January 13, 2017, bilateral MG screening mammo w CAD. There are scattered fibroglandular densities. No significant changes when compared with prior studies. ASSESSMENT: Benign, BI-RAD 2 RECOMMENDATION: Routine screening mammogram of both breasts in 1 year.
== END | disposition home or self-care (01) ==
LOC: RADMAMWWP 11:02
PROVIDERS: ATTEND Family Medicine
DX: Z12.31 Encounter for screening mammogram for malignant neoplasm of breast (principal); Z78.0 Asymptomatic menopausal state
CPT/HCPCS: 77063; 77067

== ENCOUNTER → 2022-07-29 | Outpatient (CLI) | payer MEDICARE ==
--- NOTE | 2022-07-30 08:20 | MM ---
Reason for Exam: Screening (asymptomatic). Last mammogram was performed 2 year(s) and 0 month(s) ago. Patient History: Menarche at age 15. First Full-Term at age 31. Late child-bearing (after 30). Postmenopausal. Risk Values: Deandra 5 year model risk: 2.2%. NCI Lifetime model risk: 5.4%. Prior Study Comparison: 01/13/2017 Bilateral Screening Mammogram, [facility]. 02/02/2018 Bilateral Screening Mammogram, [facility]. 07/12/2020 Bilateral Screening Mammogram, [facility]. Tissue Density: There are scattered fibroglandular densities. Findings: Analyzed By CAD. A few scattered tiny benign-appearing round calcifications bilaterally are redemonstrated. There is no suspicious new group of microcalcifications or new suspicious mass in either breast. Overall Assessment: Benign, BI-RAD 2 Management: Screening Mammogram of both breasts in 1 year. A clinical breast exam by your physician is recommended on an annual basis and results should be correlated with mammographic findings. Electronically signed and approved by: Demetri Olivo M.D.
== END | disposition home or self-care (01) ==
LOC: RADMAMWWP 13:36
PROVIDERS: ATTEND Family Medicine
DX: Z12.31 Encounter for screening mammogram for malignant neoplasm of breast (principal); Z78.0 Asymptomatic menopausal state
CPT/HCPCS: 77063; 77067

== ENCOUNTER → 2023-08-07 | Outpatient (CLI) | payer MEDICARE ==
--- NOTE | 2023-08-07 12:37 | US ---
EXAMINATION TYPE: US abdomen limited DATE OF EXAM: 08/07/2023 COMPARISON: NONE CLINICAL INDICATION: Female, 73 years old with history of K29.70 GASTRITIS R14.0 ABDOMINAL DISTENSION (GASEO; Pt states gassy, digestive issues TECHNIQUE: Multiple sonographic images of the right upper quadrant are obtained. FINDINGS: EXAM MEASUREMENTS: Liver Length: 18.1 cm Gallbladder Wall: 0.2 cm CBD: 1.0 cm Right Kidney: 10.2 x 4.0 x 4.5 cm Pancreas: wnl Liver: Echogenic, heterogeneous, difficult to penetrate Gallbladder: Multiple gallstones, ?sludge ball vs. lesion Evidence for sonographic Kerns's sign: No CBD: wnl Right Kidney: wnl IMPRESSION: 1. Mildly enlarged fatty liver without focal liver mass. 2. 2.7 cm masslike structure within the gallbladder which could represent adherent sludge but neoplas m not excluded. CT of the abdomen and pelvis is recommended for further evaluation. 3. Cholelithiasis.
== END | disposition home or self-care (01) ==
LOC: RADUSWWP 09:15
PROVIDERS: ATTEND Family Medicine
DX: K76.0 Fatty (change of) liver, not elsewhere classified (principal); K80.20 Calculus of gallbladder without cholecystitis without obstruction; K82.8 Other specified diseases of gallbladder; K29.70 Gastritis, unspecified, without bleeding; R14.0 Abdominal distension (gaseous)
CPT/HCPCS: 76705

== ENCOUNTER → 2023-08-27 | Outpatient (CLI) | payer MEDICARE ==
[2023-08-27 11:22] LABS: African American GFR (CKD) >90 (>60 ml/min/1.73 sqM); Blood Urea Nitrogen 13 mg/dL (7-17); Non-African American GFR(CKD) 82 (>60 ml/min/1.73 sqM)
--- NOTE | 2023-08-27 13:39 | CT ---
EXAMINATION TYPE: CT abdomen pelvis w con DATE OF EXAM: 08/27/2023 COMPARISON: None HISTORY: Localized swelling, lump, mass, possible gallstones, pt hx diverticulosis, IBS. CT DLP: 1061.50 mGycm Automated exposure control for dose reduction was used. TECHNIQUE: Helical acquisition of images was performed from the lung bases through the pelvis. CONTRAST: Performed with Oral Contrast and with IV Contrast, patient injected with 100 mL of Isovue 300. FINDINGS: The lung bases are clear. Multiple tiny gallstones or gallbladder sludge. There is no distention, wall thickening or pericholec ystic fluid. There is no biliary ductal dilatation. There is no focal mass or organomegaly involving the liver, pancreas, spleen or adrenal glands. There is moderate fatty infiltration of the liver There is no solid renal mass or hydronephrosis and there is homogeneous contrast enhancement of the r enal parenchyma. There are bilateral small simple cortical cysts. The caliber the abdominal aorta is normal is no retroperitoneal adenopathy or hemorrhage. The bowel loops are normal in caliber and there is no evidence of dilatation or obstruction. No infla mmatory changes are identified in the bowel wall or mesentery. There is no free intraperitoneal air or fluid. No pelvic mass, free fluid, abscess or adenopathy. There are surgical absence of the uterus. There is a left hip prosthesis. No focal osseous lesions are seen IMPRESSION: IMPRESSION: 1. Mild cholelithiasis or gallbladder sludge. 2. Moderate fatty infiltration liver 3. No other significant abnormality seen.
== END | disposition home or self-care (01) ==
LOC: RADCTMAIN 10:14
PROVIDERS: ATTEND Family Medicine
DX: K76.0 Fatty (change of) liver, not elsewhere classified (principal); R22.2 Localized swelling, mass and lump, trunk; K57.30 Diverticulosis of large intestine without perforation or abscess without bleeding; K58.9 Irritable bowel syndrome, unspecified
CPT/HCPCS: 82565; 84520; 74177; 36415; Q9967

== ENCOUNTER → 2023-12-29 | Outpatient (CLI) | payer MEDICARE ==
--- NOTE | 2023-12-29 13:17 | CT ---
1 EXAMINATION TYPE: CT abdomen pelvis wo con DATE OF EXAM: 12/29/2023 COMPARISON: 08/27/2023 HISTORY: GALLBLADDER MASS CT DLP: 600.9 mGycm Examination of the solid and hollow viscera is limited given the lack of contrast. FINDINGS: LUNG BASES: No evidence for nodule. No evidence for infiltrate. LIVER/GB: Gallstone noted. No visible gallbladder mass. No space-occupying hepatic lesion. PANCREAS: No pancreatic mass identified. No inflammatory process seen. SPLEEN: No evidence for splenomegaly. No intrasplenic lesions seen. ADRENALS: No adrenal nodules identified. No evidence for thickening. KIDNEYS: Exophytic cyst lower pole left kidney is stable. No nephrolithiasis. No hydronephrosis. BOWEL: Appendix has a normal appearance. No evidence of bowel obstruction. No inflammatory process. S igmoid diverticulosis without diverticulitis. Lymph nodes: No evidence for adenopathy greater than 1 cm. Abdominal aorta: Atheromatous changes seen. No evidence for aneurysm. Genital organs: No significant abnormality. Other: Left hip prosthesis. IMPRESSION: 1.Gallstone noted. No visible gallbladder mass. [facility] Stalin Danilele, , 12/29/2023 1:15 PM
== END | disposition home or self-care (01) ==
LOC: RADCTMAIN 11:09
PROVIDERS: ATTEND Surgery
DX: C23 Malignant neoplasm of gallbladder
CPT/HCPCS: 74176